=== PATIENT | female | born 1990 | race Caucasian/White ===

== ENCOUNTER 2021-10-22 08:41 | Outpatient (CLI) | payer BC ==
[2021-10-22 10:16] LABS: BHCG - Serum Negative (NEGATIVE); Pregs Control Background? CLEAR/WHITE (CLR/WHITE); Pregs Control Bar Appear? YES (CONTROL BAR)
[2021-10-22 10:21] LABS: Anion Gap 16 mmol/L (10-20); BUN (Urea Nitrogen) 14 mg/dL (7.0-18.7); Calc. Creatinine Clearance 0 mL/min (70-130); Calcium 9.6 mg/dL (7.8-10.44); Carbon Dioxide 25 mmol/L (22-29); Chloride 106 mmol/L (98-107); Estimated GFR 119; Glucose 103 mg/dL (70-105); Potassium 4.9 mmol/L (3.5-5.1); Sodium 142 mmol/L (136-145)
== END 2021-10-22 08:42 | disposition home or self-care (01) ==
LOC: CSHLAB 08:41
PROVIDERS: ATTEND Surgery
DX: Z01.818 Encounter for other preprocedural examination (principal); Z20.822 Contact with and (suspected) exposure to COVID-19; K62.89 Other specified diseases of anus and rectum
CPT/HCPCS: 80048; 84703; 87811; 93005; 93010

== ENCOUNTER 2021-10-24 05:47 | Day surgery (SDC) | payer BC ==
[2021-10-22 14:45] VITALS: BMI 42.5
[2021-10-24] MEDS ORDERED: EPINEPHrine 1 MG/ML AMP ONE (06:58)
[2021-10-24] MEDS ORDERED: Bupivacaine PF 0.5% 30 ML VIAL ONE (06:58)
[2021-10-24] MEDS ORDERED: Lidocaine 2% 6 ML SYR ONE (06:59)
[2021-10-24] MEDS ORDERED: PROPOFOL 20 ML ONE ×2 (07:03→07:39)
[2021-10-24] MEDS ORDERED: Fentanyl 100 MCG/2 ML VIAL ONE ×3 (07:03→08:35)
[2021-10-24] MEDS ORDERED: Lidocaine 1% PF 5 ML VIAL ONE (07:03)
[2021-10-24] MEDS ORDERED: Midazolam HCl 2 mg/2 ml Vial ONE (07:05)
[2021-10-24] MEDS ORDERED: CEFAZOLIN 2 GM VIAL ONE (07:24)
[2021-10-24] MEDS ORDERED: Glycopyrrolate 0.2 MG/ML 5 ML SYRINGE ONE (07:43)
[2021-10-24] MEDS ORDERED: Ondansetron PF 4 MG/2 ML Vial ONE (08:08)
[2021-10-24] MEDS ORDERED: Dexamethasone 4 mg/ml Vial ONE (08:08)
[2021-10-24] MEDS ORDERED: Ketorolac Tromethamine 30 MG/ML VIAL ONE (08:18)
[2021-10-24] MEDS ORDERED: Acetaminophen 325 MG TAB PO PRN (08:47)
[2021-10-24] MEDS ORDERED: HYDROcodone/Acetaminophen 5/325 mg Tablet PO PRN ×2 (08:47)
== END 2021-10-24 10:05 | disposition home or self-care (01) ==
LOC: CSHSDC 05:47
PROVIDERS: ATTEND Surgery
PROC: 06BY0ZC Excision of Hemorrhoidal Plexus, Open Approach (ICD-10-PCS; principal; 2021-10-24)
DX: K64.4 Residual hemorrhoidal skin tags (principal); K64.2 Third degree hemorrhoids; K62.89 Other specified diseases of anus and rectum; I10 Essential (primary) hypertension; Z79.899 Other long term (current) drug therapy; F41.9 Anxiety disorder, unspecified; F32.A Depression, unspecified; Z88.8 Allergy status to other drugs, medicaments and biological substances
CPT/HCPCS: 88304; J0171; J0690; J1100; J1885; J2250; J2405; J2704; J3010; S0020

== ENCOUNTER 2022-03-28 14:06 | Outpatient (CLI) | payer BC | END 2022-03-28 14:07 | disposition home or self-care (01) | LOC: CSHLAB 14:06 | PROVIDERS: ATTEND Obstetrics & Gynecology | DX: Z01.818 Encounter for other preprocedural examination (principal); O02.1 Missed abortion | CPT/HCPCS: 80048; 85027; 86850; 86900; 86901; 93005; 93010 ==

== ENCOUNTER 2022-03-31 09:53 | Day surgery (SDC) | payer BC ==
[2022-03-28 09:15] VITALS: BMI 43.2
[2022-03-28 15:09] LABS: Mean Corpuscular Hemoglobin 29.1 pg (27.0-33.0); Mean Corpuscular Volume 88.3 fl (81.6-98.3); Mean Platelet Volume 10.8 fl (7.4-10.4); Platelet Count 256 10x3/uL (150-450); RBC Distribution Width 12.8 % (11.5-14.5); Red Blood Cell (RBC) Count 5.15 10x6/uL (3.90-5.03); White Blood Cell (WBC) Count 9.1 10x3/uL (3.5-10.5)
[2022-03-28 15:19] LABS: Anion Gap 17 mmol/L (10-20); BUN (Urea Nitrogen) 9 mg/dL (7.0-18.7); Calc. Creatinine Clearance 0 mL/min (70-130); Calcium 9.3 mg/dL (7.8-10.44); Carbon Dioxide 24 mmol/L (22-29); Chloride 108 mmol/L (98-107); Estimated GFR 113; Glucose 109 mg/dL (70-105); Potassium 4.9 mmol/L (3.5-5.1); Sodium 144 mmol/L (136-145)
[2022-03-31] MEDS ORDERED: CEFAZOLIN 2 GM VIAL ONE (11:52)
[2022-03-31] MEDS ORDERED: Midazolam HCl 2 mg/2 ml Vial ONE (11:56)
[2022-03-31] MEDS ORDERED: Ketorolac Tromethamine 30 MG/ML VIAL ONE (12:59)
== END 2022-03-31 14:25 | disposition home or self-care (01) ==
LOC: CSHSDC 09:53
PROVIDERS: ATTEND Obstetrics & Gynecology
PROC: 10D17Z9 Manual Extraction of Products of Conception, Retained, Via Natural or Artificial Opening (ICD-10-PCS; principal; 2022-03-31)
DX: O02.1 Missed abortion (principal); I10 Essential (primary) hypertension; E66.01 Morbid (severe) obesity due to excess calories; Z68.41 Body mass index [BMI] 40.0-44.9, adult; E28.2 Polycystic ovarian syndrome; E11.9 Type 2 diabetes mellitus without complications; Z79.899 Other long term (current) drug therapy; Z88.8 Allergy status to other drugs, medicaments and biological substances
CPT/HCPCS: 80048; 85027; 86850; 86900; 86901; 88305; J1885; J2250